=== PATIENT | male | born 1965 | race Caucasian/White ===

== ENCOUNTER 2017-03-19 14:54 | Emergency (ER) | payer OTHER ==
[~2017-03-19 14:54] MED LIST: ALDACTONE25 MG PO; AMIODARONE HCL200 MG PO; FOLIC ACID1 MG PO; HYDROCODON-ACE1 EAC6 PO; LASIX40 MG PO; NICODERM 14MG PA1 EA TD; POTASSIUM CHLO10 ME1 PO; TYLENOL325 M1 PO; ZESTRIL10 MG PO
== END 2017-03-19 18:32 | disposition other institution (70) ==
LOC: ER 14:54
DX: I82.4Z2 Acute embolism and thrombosis of unspecified deep veins of left distal lower extremity (principal); I48.91 Unspecified atrial fibrillation; M10.9 Gout, unspecified; F17.210 Nicotine dependence, cigarettes, uncomplicated; Z86.718 Personal history of other venous thrombosis and embolism; Z79.02 Long term (current) use of antithrombotics/antiplatelets
CPT/HCPCS: 99284-25

== ENCOUNTER 2017-03-19 14:54 | Inpatient (IN) | payer OTHER ==
[~2017-03-19] VITALS: Ht 175.3 cm; Wt 106.0 kg
[2017-03-19 17:33] LABS: BASO # 0.1 10_X3_uL (0.0-0.1); BASO % 0.9 % (0.2-1.2); EOS # 0.1 10_X3_uL (0.0-0.5); EOS % 1.4 % (0.8-7.0); GRAN # 4.9 10_X3_uL (1.8-5.4); GRAN % 75.5 % (34.0-67.9); HEMATOCRIT 47.1 % (40-51); HEMOGLOBIN 16.4 g/dL (13.7-17.5); LYMPH # 1.1 10_X3_uL (1.3-3.6); LYMPH % 16.9 % (21.8-53.1); MEAN CORPUSCULAR HEMOGLOBIN 31.9 pg (27.0-33.0); MEAN CORPUSCULAR HGB CONC 34.8 g/dL (32.0-36.0); MEAN CORPUSCULAR VOLUME 91.6 fL (79-92); MEAN PLATELET VOLUME 10.7 fl (7.5-11.5); MONO # 0.3 10_X3_uL (0.3-0.8); MONO % 5.3 % (5.3-12.2); PLATELET COUNT 95 x10_3/uL (163-337); RED BLOOD COUNT 5.14 x10_6/uL (4.6-6.1); RED CELL DISTRIBUTION WIDTH 14.3 % (11.6-14.4); WHITE BLOOD COUNT 6.4 x10_3/uL (4.2-9.1)
[2017-03-19 17:45] LABS: PARTIAL THROMBOPLASTIN TIME 26.7 SECONDS (21.3-29.3); PROTHROMBIN TIME (PATIENT) 10.2 SECONDS (9.9-11.1)
[2017-03-19 17:46] LABS: ALKALINE PHOSPHATASE 88 U/L (50-136); ALT/SGPT 18 U/L (7.53-40.17); AST/SGOT 25 U/L (6.66-35.34); BILIRUBIN,TOTAL 0.66 mg/dL (0.0-1.0); BLOOD UREA NITROGEN 15 mg/dL (7-18); CALCIUM 9.2 mg/dL (8.7-10.7); CARBON DIOXIDE 25 mmol/L (21-32); CREATININE 1.1 mg/dL (0.6-1.3); GLUCOSE,RANDOM 94 mg/dL (70-99); POTASSIUM 4.4 mmol/L (3.5-5.1); SODIUM 141 mmol/L (136-145); TOTAL PROTEIN 6.8 gm/dL (6.4-8.2)
[2017-03-20 07:03] LABS: BASO # 0.1 10_X3_uL (0.0-0.1); BASO % 1.6 % (0.2-1.2); EOS # 0.1 10_X3_uL (0.0-0.5); EOS % 2.3 % (0.8-7.0); GRAN % 67.6 % (34.0-67.9); HEMATOCRIT 44.9 % (40-51); HEMOGLOBIN 15.2 g/dL (13.7-17.5); LYMPH # 0.9 10_X3_uL (1.3-3.6); LYMPH % 21.2 % (21.8-53.1); MEAN CORPUSCULAR HEMOGLOBIN 31.3 pg (27.0-33.0); MEAN CORPUSCULAR HGB CONC 33.9 g/dL (32.0-36.0); MEAN CORPUSCULAR VOLUME 92.6 fL (79-92); MEAN PLATELET VOLUME 10.9 fl (7.5-11.5); MONO # 0.3 10_X3_uL (0.3-0.8); MONO % 7.3 % (5.3-12.2); PLATELET COUNT 73 x10_3/uL (163-337); RED BLOOD COUNT 4.85 x10_6/uL (4.6-6.1); RED CELL DISTRIBUTION WIDTH 14.3 % (11.6-14.4); WHITE BLOOD COUNT 4.4 x10_3/uL (4.2-9.1)
[2017-03-20 07:16] LABS: PARTIAL THROMBOPLASTIN TIME 33.3 SECONDS (21.3-29.3); PROTHROMBIN TIME (PATIENT) 10.6 SECONDS (9.9-11.1)
[2017-03-20 07:26] LABS: ALBUMIN 3.6 gm/dL (3.4-5.0); ALKALINE PHOSPHATASE 75 U/L (50-136); ALT/SGPT 19 U/L (7.53-40.17); AST/SGOT 27 U/L (6.66-35.34); BILIRUBIN,TOTAL 0.84 mg/dL (0.0-1.0); BLOOD UREA NITROGEN 16 mg/dL (7-18); CALCIUM 8.7 mg/dL (8.7-10.7); CARBON DIOXIDE 26 mmol/L (21-32); GLUCOSE,RANDOM 88 mg/dL (70-99); POTASSIUM 3.8 mmol/L (3.5-5.1); SODIUM 141 mmol/L (136-145); TOTAL PROTEIN 6.2 gm/dL (6.4-8.2)
[2017-03-21 06:47] LABS: HEMATOCRIT 46.6 % (40-51); HEMOGLOBIN 15.5 g/dL (13.7-17.5); MEAN CORPUSCULAR HEMOGLOBIN 31.4 pg (27.0-33.0); MEAN CORPUSCULAR HGB CONC 33.3 g/dL (32.0-36.0); MEAN CORPUSCULAR VOLUME 94.3 fL (79-92); MEAN PLATELET VOLUME 12.2 fl (7.5-11.5); RED BLOOD COUNT 4.94 x10_6/uL (4.6-6.1); RED CELL DISTRIBUTION WIDTH 14.3 % (11.6-14.4); WHITE BLOOD COUNT 4.4 x10_3/uL (4.2-9.1)
[2017-03-21 06:51] LABS: INR 1.2 (0.9-1.1); PROTHROMBIN TIME (PATIENT) 12.3 SECONDS (9.9-11.1)
[2017-03-21 07:10] LABS: BLOOD UREA NITROGEN 15 mg/dL (7-18); CALCIUM 8.7 mg/dL (8.7-10.7); CARBON DIOXIDE 29 mmol/L (21-32); CREATININE 1.2 mg/dL (0.6-1.3); GLUCOSE,RANDOM 91 mg/dL (70-99); POTASSIUM 3.9 mmol/L (3.5-5.1); SODIUM 140 mmol/L (136-145)
== END 2017-03-21 16:24 | disposition home or self-care (01) | DRG 300 ==
LOC: ER 14:54 → MS 18:32
PROVIDERS: Internal Medicine; ADMIT Family Medicine
DX: I82.412 Acute embolism and thrombosis of left femoral vein (principal); J90 Pleural effusion, not elsewhere classified; I82.432 Acute embolism and thrombosis of left popliteal vein; I48.91 Unspecified atrial fibrillation; M79.605 Pain in left leg; R06.02 Shortness of breath; I10 Essential (primary) hypertension; F17.210 Nicotine dependence, cigarettes, uncomplicated; Z79.02 Long term (current) use of antithrombotics/antiplatelets; Z79.899 Other long term (current) drug therapy
CPT/HCPCS: 36415; 71010; 80048; 80053; 85025; 85610; 85730; 93005; 93971; 94664; 99070; 99284-25